=== PATIENT | male | born 1985 | race Asian ===

== ENCOUNTER 2017-05-21 21:35 | Outpatient (CLI) | payer OTHER | END 2017-05-21 21:49 | disposition short-term general hospital (02) | LOC: AMB 21:35 | DX: R56.9 Unspecified convulsions (principal); F41.8 Other specified anxiety disorders | CPT/HCPCS: A0425; A0427 ==

== ENCOUNTER 2017-05-21 21:50 | Emergency (ER) | payer OTHER ==
[~2017-05-21] VITALS: Ht 170.2 cm; Wt 61.2 kg
[2017-05-21 22:05] VITALS: BP 152/106; TEMP 98.1
== END 2017-05-21 22:42 | disposition left against medical advice (07) ==
LOC: ED 21:50
DX: S40.011A Contusion of right shoulder, initial encounter (principal); V43.62XA Car passenger injured in collision with other type car in traffic accident, initial encounter; Y93.89 Activity, other specified; Y92.89 Other specified places as the place of occurrence of the external cause; Y99.8 Other external cause status; M54.5 Low back pain
CPT/HCPCS: 99282